=== PATIENT | female | born 1960 ===

== ENCOUNTER 2023-06-22 10:08 | Emergency (ER) | payer BC, SELFPAY ==
[2023-06-22 10:14] VITALS: BP 203/117; PULSE 85; RESP 14; TEMP 36.4; O2SAT 99; BMI 22.0
--- NOTE | 2023-06-22 11:16 | ED_ITS ---
HPI - General Adult General Chief complaint: Insect Bite Stated complaint: Bee sting R hand, swollen Time Seen by Provider: 06/22/23 10:53 History of Present Illness HPI narrative: This 62-year-old female comes in with her right forearm swollen and red after a bee sting that occurred 2 days ago. She states that she was mowing her lawn and was stung by a ground bee. She does not report any fevers. She comes in today because the sting occurred on the dorsal aspect of her right hand but now she has erythema and swelling extending up almost to her right elbow. She states that she has been taking Benadryl. Related Data Home Medications Medication Instructions Recorded Confirmed lorazepam 0.5 mg tablet 0.5 mg PO QPM PRN insomnia 06/22/23 06/22/23 Previous Rx's Medication Instructions Recorded amoxicillin 875 mg-potassium 1 tab PO BID #14 tabs 06/22/23 clavulanate 125 mg tablet Allergies Allergy/AdvReac Type Severity Reaction Status Date / Time No Known Drug Allergies Allergy Verified 06/22/23 10:18 Review of Systems Status of ROS: Reports: 10 or more systems reviewed and unremarkable except as noted in History and below Narrative: Constitutional: No fevers, no weight gain or loss. Eyes: No discharge. No vision changes. HENT: No congestion, no sore throat, no ear pain. Cardiovascular: No chest pain, no palpitations. Respiratory: No shortness of breath, no wheezes, no cough. Gastrointestinal: No abdominal pain, no vomiting, no diarrhea. Genitourinary: No dysuria, no hematuria. Musculoskeletal: Normal range of motion. Skin: Bee sting on the right hand with redness and swelling extending up the forearm. Neurological: No dizziness, weakness, sensory change, speech change. Endo/Heme/Allergies: No bruising or bleeding. No polydipsia. Pysch: no suicidality, no anxiety, no insomnia. All other systems reviewed and are negative. Exam Narrative: Exam Narrative: Constitutional: Well-developed, well-nourished, no acute distress. HEENT: Normocephalic, atraumatic. Neck: Normal range of motion. Nontender. Supple. Heart: Regular. No murmurs. Normal rate. Intact distal pulses. Lungs: Clear to auscultation. No chest discomfort. No wheezes, rhonchi, or rales. Abdomen: Normal bowel sounds. Nontender. No rebound tenderness. Genitalia: Deferred. Back: No midline tenderness. Normal range of motion. Extremities: Normal range of motion. No injury. Skin: Intact. The right hand and forearm has erythema and swelling with warmth typical of cellulitis. Neurologic: No altered sensation. No weakness. Alert and oriented. Psychiatric: No suicidality. No anxiety or depression. No insomnia. Nursing notes and vitals signs are reviewed. Const: Vital Signs, click to edit/add: Vital Signs - 24 hr 06/22/23 10:14 Temperature 97.5 F L Pulse Rate [Pulse Oximeter] 85 Respiratory Rate 14 Blood Pressure [Le ft Upper Arm] 203/117 H Pulse Oximetry 99 Oxygen Delivery Me thod Room Air Course Vital Signs Vital signs: Initial Vital Signs Temperature 97.5 F L 06/22/23 10:14 Temperature Source Temporal Artery Scan 06/22/23 10:14 Pulse Rate 85 06/22/23 10:14 Pulse Rhythm Regular 06/22/23 10:14 Respiratory Rate 14 06/22/23 10:14 Blood Pressure 203/117 H 06/22/23 10:14 Blood Pressure Mean 145 H 06/22/23 10:14 Blood Pressure Position Sitting 06/22/23 10:14 Pulse Oximetry 99 06/22/23 10:14 Oxygen Delivery Method Room Air 06/22/23 10:14 Vital Signs Temperature 97.5 F L 06/22/23 10:14 Pulse Rate 85 06/22/23 10:14 Respiratory Rate 14 06/22/23 10:14 Blood Pressure 203/117 H 06/22/23 10:14 Pulse Oximetry 99 06/22/23 10:14 Oxygen Delivery Method Room Air 06/22/23 10:14 Temperature 97.5 F L 06/22/23 10:14 Pulse Rate 85 06/22/23 10:14 Respiratory Rate 14 06/22/23 10:14 Blood Pressure 203/117 H 06/22/23 10:14 Pulse Oximetry 99 06/22/23 10:14 Oxygen Delivery Method Room Air 06/22/23 10:14 Medical Decision Making [facility] Narrative Medical decision making narrative: This patient has a bee sting on the right hand the occurred a couple days ago and now show signs of a secondary cellulitis. She has not had any fevers and is not showing any signs of systemic infection. She received a prescription for Augmentin. I did describe signs or symptoms that would indicate a need for return and re-evaluation. Discharge Plan Discharge Clinical Impression: Cellulitis Condition: Stable Additional Instructions: Take medication as prescribed. Use antihistamines also as needed and directed. Follow up with MD return if worsening symptoms occur. Prescriptions: New amoxicillin-pot clavulanate 875-125 mg tablet 1 tab PO BID Qty: 14 0RF No Action lorazepam 0.5 mg tablet 0.5 mg PO QPM PRN (Reason: insomnia) Follow Up/Referrals: Ramo Morales MD [Staff Physician] - Stand Alone Forms: [employer] Info Instructions
== END 2023-06-22 12:02 | disposition home or self-care (01) ==
PROVIDERS: Emergency Provider Emergency Medicine Emergency Medical Services; PCP Family Medicine
DX: L03.113 Cellulitis of right upper limb (principal); T63.441A Toxic effect of venom of bees, accidental (unintentional), initial encounter
CPT/HCPCS: 99283; 99284